=== PATIENT | male | born 1940 | race Caucasian/White ===

== ENCOUNTER 2020-12-12 15:37 | Inpatient (IN) ==
[2020-12-12] MEDS ORDERED: Dextrose Gel 15 GM/37.5 ML TUBE PO PRN ×2 (18:28)
[2020-12-12] MEDS ORDERED: Ondansetron ODT 4 MG TAB.RAPDIS SL PRN (18:28)
[2020-12-12] MEDS ORDERED: Acetaminophen 325 MG TABLET PO PRN (18:28)
[2020-12-12] MEDS ORDERED: D5% in Water 1,000 ML IVC PRN (18:28)
[2020-12-12] MEDS ORDERED: Naloxone 0.4 MG/ML INJ IVP PRN (18:28)
[2020-12-12] MEDS: *HR* Dextrose 50 % in Water (Vial) 50 ML VIAL IVP PRN (18:41)
[2020-12-12] MEDS ORDERED: Ondansetron 4 MG/2 ML VIAL IVP PRN (18:42)
[2020-12-12 20:58] LABS: Basophils % 0.2 %; Eosinophils # 0.1 K/mcL (0.0-0.6); Hematocrit 23.8 % (37.5-50.1); Hemoglobin 7.2 g/dL (12.9-16.9); Immature Granulocytes % 0.5 % (0-4); Lymphocytes # 0.5 K/mcL (0.6-4.6); Lymphocytes % 9.1 %; Mean Corpuscular HGB Conc 30.3 g/dL (31.6-35.5); Mean Corpuscular Hemoglobin 27.4 pg (28.0-33.3); Mean Corpuscular Volume 90.5 fL (83.0-100.0); Mean Platelet Volume 10.5 fL (9.4-12.4); Monocytes # 0.7 K/mcL (0.0-1.3); Monocytes % 12.5 %; Neutrophils # 4.2 K/mcL (1.6-8.9); Platelet Count 193 K/mcL (140-400); Red Blood Count 2.63 M/mcL (4.19-5.50); Red Cell Distribution Width 17.3 % (11.5-14.5); Segmented Neutrophils % 75.7 %; White Blood Count 5.6 K/mcL (4.3-11.1)
[2020-12-12 21:22] LABS: Chol/HDL Ratio 2.4 (0-4.9)
[2020-12-12 21:23] LABS: Troponin I 0.03 ng/mL (< 0.04)
[2020-12-12 21:24] LABS: Albumin 3.7 g/dL (3.5-5.7); Albumin/Globulin Ratio 1.6 (1.1-2.2); Bilirubin,Total 0.5 mg/dL (0.3-1.0); Calcium 8.5 mg/dL (8.6-10.3); Globulin 2.3 g/dL (2.4-3.5); Magnesium 1.9 mg/dL (1.6-2.6); Potassium 4.7 mEq/L (3.5-5.1)
[2020-12-12 21:46] LABS: Folate 14.2 ng/mL (3.0-16.0)
[2020-12-12] MEDS ORDERED: *HR* LORazepam 0.5 MG TABLET PO PRN (22:29)
[2020-12-12] MEDS ORDERED: (Linaclotide [Linzess] 145 MCG Capsule) PO PRN (22:44)
[2020-12-12] MEDS ORDERED: Perflutren Lipid Microsphere 1.3 ML in 0.9 % Sodium Chloride 8.7 ML IVP PRN (22:54)
[2020-12-13] MEDS ORDERED: *HR* HYDROcodone/Acet 7.5/325 mg TABLET PO ONE (02:00)
[2020-12-13] MEDS: *HR* Dextrose 50 % in Water (Vial) 50 ML VIAL IVP PRN ×2 (03:20→04:38)
[2020-12-13] MEDS ORDERED: *HR* HYDROmorphone 2 MG TABLET PO ONE (05:06)
[2020-12-13] MEDS ORDERED: tiZANidine 4 MG TABLET PO ONE (05:06)
[2020-12-13] MEDS ORDERED: *HR* Heparin 5,000 UNIT/ML VIAL SQ SCH (06:00)
[2020-12-13 07:28] LABS: Platelet Count 198 K/mcL (140-400); Red Cell Distribution Width 17.3 % (11.5-14.5)
[2020-12-13 07:30] LABS: Hematocrit 24.2 % (37.5-50.1); Hemoglobin 7.4 g/dL (12.9-16.9); Mean Corpuscular HGB Conc 30.6 g/dL (31.6-35.5); Mean Corpuscular Hemoglobin 27.5 pg (28.0-33.3); Mean Platelet Volume 10.5 fL (9.4-12.4); Red Blood Count 2.69 M/mcL (4.19-5.50); White Blood Count 5.2 K/mcL (4.3-11.1)
[2020-12-13 07:49] LABS: Calcium 8.6 mg/dL (8.6-10.3); Potassium 4.7 mEq/L (3.5-5.1)
[2020-12-13] MEDS: Fenofibrate 54 MG TABLET PO SCH (07:56)
[2020-12-13] MEDS: Sucralfate 1 GM TABLET PO SCH ×3 (07:56→20:24)
[2020-12-13] MEDS: Ranolazine 500 MG TAB.ER.12H PO SCH ×2 (07:56→20:24)
[2020-12-13] MEDS: Loratadine/Pseudophed (12 HR) 1 EACH TABLET PO SCH (07:57)
[2020-12-13] MEDS ORDERED: NON-FORMULARY MEDICATION 1 EACH EACH (Lisinopril [Zestril] 40 MG Tablet) PO SCH (09:00)
[2020-12-13] MEDS: Insulin LISPRO 300 UNITS/3 ML VIAL SUBQ SCH ×3 (12:45→20:22)
[2020-12-13] MEDS: *HR* HYDROcodone/Acet 7.5/325 mg TABLET PO PRN ×2 (12:57→20:27)
[2020-12-13] MEDS: Ondansetron 4 MG/2 ML VIAL IVP PRN ×2 (14:38→22:26)
[2020-12-13] MEDS ORDERED: Levalbuterol 1 PUFF INHALER IH PRN (23:10)
[2020-12-13] MEDS: Ipratropium/Albuterol Neb 3 ML IH PRN (23:23)
[2020-12-14] MEDS: Ipratropium/Albuterol Neb 3 ML IH PRN ×2 (03:38→10:40)
[2020-12-14 05:37] LABS: Hemoglobin 7.6 g/dL (12.9-16.9); Mean Corpuscular HGB Conc 30.4 g/dL (31.6-35.5); Mean Corpuscular Hemoglobin 27.3 pg (28.0-33.3); Mean Corpuscular Volume 89.9 fL (83.0-100.0); Platelet Count 241 K/mcL (140-400); Red Blood Count 2.78 M/mcL (4.19-5.50); Red Cell Distribution Width 17.2 % (11.5-14.5); White Blood Count 6.2 K/mcL (4.3-11.1)
[2020-12-14 05:54] LABS: Calcium 8.8 mg/dL (8.6-10.3); Potassium 5.9 mEq/L (3.5-5.1)
[2020-12-14] MEDS ORDERED: *HR* Dextrose 50 % in Water (Vial) 50 ML VIAL IVP ONE (07:45)
[2020-12-14] MEDS ORDERED: Albuterol Neb 7.5 MG, Sodium Chloride for inhalation 12 ML IH ONE (07:45)
[2020-12-14] MEDS ORDERED: Insulin Human Regular 10 UNIT in 0.9 % Sodium Chloride 10 ML IV ONE (07:45)
[2020-12-14] MEDS: Sucralfate 1 GM TABLET PO SCH ×3 (08:16→17:42)
[2020-12-14] MEDS: Loratadine/Pseudophed (12 HR) 1 EACH TABLET PO SCH (08:16)
[2020-12-14] MEDS: Ranolazine 500 MG TAB.ER.12H PO SCH (08:16)
[2020-12-14] MEDS: Fenofibrate 54 MG TABLET PO SCH (08:17)
[2020-12-14] MEDS: Insulin LISPRO 300 UNITS/3 ML VIAL SUBQ SCH ×4 (08:25→21:53)
[2020-12-14] MEDS: Ondansetron 4 MG/2 ML VIAL IVP PRN (09:04)
[2020-12-14] MEDS: *HR* HYDROcodone/Acet 7.5/325 mg TABLET PO PRN (09:57)
[2020-12-14] MEDS ORDERED: Ferumoxytol 510 MG in 0.9 % Sodium Chloride 100 ML IVPB ONE (11:38)
[2020-12-14] MEDS: Aspirin Enteric Coated 81 MG Tablet PO SCH (11:54)
[2020-12-14] MEDS: Ipratropium/Albuterol Neb 3 ML IH SCH ×4 (12:35→23:57)
[2020-12-14] MEDS ORDERED: 0.9 % Sodium Chloride 250 ML IVC PRN (14:26)
[2020-12-14] MEDS ORDERED: *HR* Heparin 10,000 UNIT/10 ML VIAL IV PRN (14:26)
[2020-12-14] MEDS ORDERED: 0.9 % Sodium Chloride 1,000 ML ONE (14:29)
[2020-12-14] MEDS ORDERED: 0.9 % Sodium Chloride 1,000 ML PRIME SCH (14:30)
[2020-12-14 16:14] LABS: Hepatitis B Surface Antibody < 3.10 mIU/mL
[2020-12-14 17:45] LABS: Hepatitis B Surface Antigen Nonreactive (Nonreactive)
[2020-12-14] MEDS: *HR* HYDROcodone/Acet 10/325 mg TABLET PO PRN (19:28)
[2020-12-14] MEDS: hydrOXYzine pamoate 25 MG CAPSULE PO SCH (20:57)
[2020-12-14] MEDS ORDERED: Gabapentin 300 MG CAPSULE PO SCH (21:00)
[2020-12-15 01:05] LABS: ABG Base Excess 7 mEq/L (-2 to 3); ABG HCO3 33 mEq/L (21-27); ABG Oxygen Saturation 97 % (95-98); ABG PCO2 52 mmHg (35-45); ABG PO2 89 mmHg (85-104); ABG TCO2 34 mEq/L (20-26); Blood Gas Modality 6LPM
[2020-12-15 01:25] LABS: Basophils % 0.5 %; Eosinophils % 0.3 %; Hemoglobin 7.4 g/dL (12.9-16.9); Immature Granulocytes % 1.5 % (0-4); Lymphocytes # 0.4 K/mcL (0.6-4.6); Lymphocytes % 6.7 %; Mean Corpuscular HGB Conc 29.6 g/dL (31.6-35.5); Mean Corpuscular Hemoglobin 26.3 pg (28.0-33.3); Mean Platelet Volume 10.4 fL (9.4-12.4); Monocytes # 0.7 K/mcL (0.0-1.3); Neutrophils # 4.9 K/mcL (1.6-8.9); Platelet Count 241 K/mcL (140-400); Red Blood Count 2.81 M/mcL (4.19-5.50); Red Cell Distribution Width 16.9 % (11.5-14.5); White Blood Count 6.2 K/mcL (4.3-11.1)
[2020-12-15 01:44] LABS: Calcium 8.5 mg/dL (8.6-10.3); Phosphorous 2.9 mg/dL (2.7-4.5); Potassium 4.6 mEq/L (3.5-5.1)
[2020-12-15] MEDS: Ipratropium/Albuterol Neb 3 ML IH SCH ×6 (04:25→23:53)
[2020-12-15] MEDS: Insulin LISPRO 300 UNITS/3 ML VIAL SUBQ SCH ×4 (07:41→20:34)
[2020-12-15] MEDS: Aspirin Enteric Coated 81 MG Tablet PO SCH (07:42)
[2020-12-15] MEDS: Sucralfate 1 GM TABLET PO SCH ×3 (07:42→16:45)
[2020-12-15] MEDS: Ondansetron 4 MG/2 ML VIAL IVP PRN (07:46)
[2020-12-15] MEDS: *HR* HYDROcodone/Acet 10/325 mg TABLET PO PRN ×2 (07:46→14:11)
[2020-12-15 12:36] LABS: Estimated Average Glucose 148 mg/dl; Hemoglobin A1C 6.8 %
[2020-12-15] MEDS: *HR* Heparin 5,000 UNIT/ML VIAL SQ SCH ×2 (14:11→20:29)
[2020-12-15] MEDS: hydrOXYzine pamoate 25 MG CAPSULE PO SCH (20:27)
[2020-12-15] MEDS: Gabapentin 100 MG CAPSULE PO SCH (20:27)
[2020-12-16 02:02] LABS: Basophils % 0.3 %; Eosinophils # 0.1 K/mcL (0.0-0.6); Eosinophils % 0.9 %; Hematocrit 25.3 % (37.5-50.1); Hemoglobin 7.5 g/dL (12.9-16.9); Immature Granulocytes % 2.1 % (0-4); Lymphocytes # 0.8 K/mcL (0.6-4.6); Lymphocytes % 14.3 %; Mean Corpuscular HGB Conc 29.6 g/dL (31.6-35.5); Mean Corpuscular Hemoglobin 26.6 pg (28.0-33.3); Mean Corpuscular Volume 89.7 fL (83.0-100.0); Mean Platelet Volume 10.4 fL (9.4-12.4); Monocytes # 0.8 K/mcL (0.0-1.3); Monocytes % 14.5 %; Neutrophils # 3.9 K/mcL (1.6-8.9); Nucleated Red Blood Cells 0.3 /100 WBC (0); Platelet Count 279 K/mcL (140-400); Red Blood Count 2.82 M/mcL (4.19-5.50); Red Cell Distribution Width 17.5 % (11.5-14.5); Segmented Neutrophils % 67.9 %; White Blood Count 5.8 K/mcL (4.3-11.1)
[2020-12-16 02:18] LABS: Calcium 8.9 mg/dL (8.6-10.3); Phosphorous 2.8 mg/dL (2.7-4.5); Potassium 5.3 mEq/L (3.5-5.1)
[2020-12-16] MEDS: Ipratropium/Albuterol Neb 3 ML IH SCH ×5 (04:03→20:04)
[2020-12-16] MEDS: *HR* Heparin 5,000 UNIT/ML VIAL SQ SCH ×3 (05:34→22:07)
[2020-12-16] MEDS ORDERED: 0.9 % Sodium Chloride 250 ML IVC PRN (07:52)
[2020-12-16] MEDS ORDERED: *HR* Heparin 10,000 UNIT/10 ML VIAL IV PRN ×2 (07:52)
[2020-12-16] MEDS: Aspirin Enteric Coated 81 MG Tablet PO SCH (09:32)
[2020-12-16] MEDS: Ondansetron 4 MG/2 ML VIAL IVP PRN ×3 (09:32→22:00)
[2020-12-16] MEDS: *HR* HYDROcodone/Acet 10/325 mg TABLET PO PRN ×2 (09:33→15:29)
[2020-12-16] MEDS: Sucralfate 1 GM TABLET PO SCH ×3 (09:33→16:55)
[2020-12-16] MEDS: Insulin LISPRO 300 UNITS/3 ML VIAL SUBQ SCH ×4 (09:40→22:00)
[2020-12-16] MEDS ORDERED: Darbepoetin 100 MCG/0.5 ML SYRINGE SQ SCH (12:00)
[2020-12-16] MEDS: Gabapentin 100 MG CAPSULE PO SCH (21:52)
[2020-12-16] MEDS: hydrOXYzine pamoate 25 MG CAPSULE PO SCH (21:53)
[2020-12-17] MEDS: Ipratropium/Albuterol Neb 3 ML IH SCH ×7 (00:06→23:37)
[2020-12-17] MEDS: *HR* HYDROcodone/Acet 10/325 mg TABLET PO PRN ×3 (00:10→17:35)
[2020-12-17] MEDS ORDERED: Ferumoxytol 510 MG in 0.9 % Sodium Chloride 100 ML IVPB ONE (00:20)
[2020-12-17 03:58] LABS: Basophils % 0.8 %; Eosinophils # 0.1 K/mcL (0.0-0.6); Eosinophils % 1.1 %; Hematocrit 24.7 % (37.5-50.1); Hemoglobin 7.3 g/dL (12.9-16.9); Immature Granulocytes % 2.3 % (0-4); Lymphocytes # 0.7 K/mcL (0.6-4.6); Lymphocytes % 12.8 %; Mean Corpuscular HGB Conc 29.6 g/dL (31.6-35.5); Mean Corpuscular Hemoglobin 26.7 pg (28.0-33.3); Mean Corpuscular Volume 90.5 fL (83.0-100.0); Monocytes # 0.8 K/mcL (0.0-1.3); Monocytes % 14.8 %; Neutrophils # 3.6 K/mcL (1.6-8.9); Nucleated Red Blood Cells 0.6 /100 WBC (0); Platelet Count 302 K/mcL (140-400); Red Blood Count 2.73 M/mcL (4.19-5.50); Red Cell Distribution Width 18.1 % (11.5-14.5); Segmented Neutrophils % 68.2 %; White Blood Count 5.3 K/mcL (4.3-11.1)
[2020-12-17 04:18] LABS: Calcium 8.7 mg/dL (8.6-10.3); Phosphorous 2.2 mg/dL (2.7-4.5); Potassium 4.2 mEq/L (3.5-5.1)
[2020-12-17] MEDS: *HR* Heparin 5,000 UNIT/ML VIAL SQ SCH ×2 (05:49→17:36)
[2020-12-17] MEDS: Sucralfate 1 GM TABLET PO SCH ×3 (08:13→17:35)
[2020-12-17] MEDS: Finasteride 5 MG TABLET PO SCH (08:13)
[2020-12-17] MEDS: Aspirin Enteric Coated 81 MG Tablet PO SCH (08:13)
[2020-12-17] MEDS: Insulin LISPRO 300 UNITS/3 ML VIAL SUBQ SCH ×4 (08:14→21:03)
[2020-12-17] MEDS ORDERED: NEBIVOLOL HCL 20 MG PO SCH (09:00)
[2020-12-17] MEDS: Ondansetron 4 MG/2 ML VIAL IVP PRN ×2 (15:01→21:06)
[2020-12-17] MEDS: hydrOXYzine pamoate 25 MG CAPSULE PO SCH (21:02)
[2020-12-17] MEDS: Gabapentin 100 MG CAPSULE PO SCH (21:03)
[2020-12-18] MEDS: Ipratropium/Albuterol Neb 3 ML IH SCH ×4 (03:34→15:56)
[2020-12-18] MEDS: *HR* Heparin 5,000 UNIT/ML VIAL SQ SCH ×2 (04:52→16:37)
[2020-12-18 05:02] LABS: Hemoglobin 8.1 g/dL (12.9-16.9)
[2020-12-18 05:18] LABS: Calcium 8.7 mg/dL (8.6-10.3); Phosphorous 2.8 mg/dL (2.7-4.5); Potassium 4.6 mEq/L (3.5-5.1)
[2020-12-18] MEDS ORDERED: 0.9 % Sodium Chloride 250 ML IVC PRN (07:25)
[2020-12-18] MEDS ORDERED: *HR* Heparin 10,000 UNIT/10 ML VIAL IV PRN ×2 (07:25)
[2020-12-18] MEDS ORDERED: 0.9 % Sodium Chloride 1,000 ML PRIME SCH (07:30)
[2020-12-18] MEDS: Aspirin Enteric Coated 81 MG Tablet PO SCH (08:08)
[2020-12-18] MEDS: Insulin LISPRO 300 UNITS/3 ML VIAL SUBQ SCH ×3 (08:08→17:21)
[2020-12-18] MEDS: Sucralfate 1 GM TABLET PO SCH ×3 (08:08→16:37)
[2020-12-18] MEDS: Finasteride 5 MG TABLET PO SCH (08:08)
[2020-12-18] MEDS: *HR* HYDROcodone/Acet 10/325 mg TABLET PO PRN (13:38)
[2020-12-18] MEDS: Ondansetron 4 MG/2 ML VIAL IVP PRN (13:41)
[2020-12-18 16:09] VITALS: BP 169/77; PULSE 85; TEMP 98.8; O2SAT 96
[2020-12-18 17:40] LABS: Adenovirus Not Detected (Not Detect); Coronavirus 229E Not Detected (Not Detect); Coronavirus HKU1 Not Detected (Not Detect); Coronavirus NL63 Not Detected (Not Detect); Coronavirus OC43 Not Detected (Not Detect); Human Metapneumovirus Not Detected (Not Detect); SARS-CoV-2 Not Detected (Not Detect)
[2020-12-18 17:41] LABS: Bordetella Pertussis Not Detected (Not Detect); Chlamydophila pneumoniae Not Detected (Not Detect); Human Rhinovirus/Enterovirus Not Detected (Not Detect); Influenza A Subtype 2009 H1 Not Detected (Not Detect); Influenza B Not Detected (Not Detect); Mycoplasma pneumoniae Not Detected (Not Detect); Parainfluenza Virus 1 Not Detected (Not Detect); Parainfluenza Virus 2 Not Detected (Not Detect); Parainfluenza Virus 3 Not Detected (Not Detect); Parainfluenza Virus 4 Not Detected (Not Detect); Respiratory Syncytial Virus Not Detected (Not Detect)
== END 2020-12-18 18:45 | disposition other institution (70) | DRG 637 ==
LOC: 2ANU → SUATTDRO 12-14 10:33
PROVIDERS: ADMIT Internal Medicine; ATTEND Internal Medicine

== ENCOUNTER 2020-12-31 16:20 | Observation (INO) ==
[2020-12-31] MEDS ORDERED: Naloxone 0.4 MG/ML INJ IVP PRN (19:36)
[2020-12-31] MEDS ORDERED: Ondansetron 4 MG/2 ML VIAL IVP PRN (19:36)
[2020-12-31] MEDS ORDERED: Melatonin 3 MG TABLET PO PRN (19:36)
[2020-12-31] MEDS ORDERED: Acetaminophen 325 MG TABLET PO PRN (19:36)
[2020-12-31] MEDS ORDERED: Albuterol 2.5 MG/3 ML NEBULIZER IH PRN (19:41)
[2020-12-31] MEDS ORDERED: *HR* LORazepam 1 MG TABLET PO PRN (19:41)
[2020-12-31] MEDS ORDERED: *HR* LORazepam 2 MG/ML VIAL IVP ONE (21:52)
[2020-12-31] MEDS ORDERED: Levalbuterol 1 PUFF INHALER IH PRN (22:00)
[2020-12-31] MEDS ORDERED: Dextrose Gel 15 GM/37.5 ML TUBE PO PRN ×2 (22:33)
[2020-12-31] MEDS ORDERED: D5% in Water 1,000 ML IVC PRN (22:33)
[2020-12-31] MEDS: Insulin DETEMIR 100 UNIT/ML X5UNITS SUBQ SCH (22:45)
[2020-12-31] MEDS: QUEtiapine Fumarate 25 MG TABLET PO SCH (22:52)
[2020-12-31] MEDS: hydrOXYzine pamoate 25 MG CAPSULE PO SCH (22:52)
[2020-12-31] MEDS: Sucralfate 1 GM TABLET PO SCH (22:52)
[2020-12-31] MEDS: Furosemide 40 MG TABLET PO SCH (22:52)
[2020-12-31] MEDS: *HR* HYDROcodone/Acet 5/325 mg TABLET PO PRN (23:48)
[2020-12-31] MEDS: hydrALAZINE 25 MG TABLET PO SCH (23:48)
[2021-01-01 06:57] LABS: Eosinophils % 0.4 %
[2021-01-01 06:58] LABS: Basophils % 0.6 %; Hematocrit 34.9 % (37.5-50.1); Hemoglobin 10.2 g/dL (12.9-16.9); Immature Granulocytes % 1.3 % (0-4); Lymphocytes # 0.8 K/mcL (0.6-4.6); Lymphocytes % 12.2 %; Mean Corpuscular HGB Conc 29.2 g/dL (31.6-35.5); Mean Corpuscular Hemoglobin 28.1 pg (28.0-33.3); Mean Corpuscular Volume 96.1 fL (83.0-100.0); Mean Platelet Volume 9.3 fL (9.4-12.4); Monocytes # 0.9 K/mcL (0.0-1.3); Neutrophils # 4.9 K/mcL (1.6-8.9); Nucleated Red Blood Cells 0.6 /100 WBC (0); Platelet Count 230 K/mcL (140-400); Red Blood Count 3.63 M/mcL (4.19-5.50); Red Cell Distribution Width 19.8 % (11.5-14.5); Segmented Neutrophils % 72.5 %; White Blood Count 6.7 K/mcL (4.3-11.1)
[2021-01-01 07:09] LABS: INR 1.3; Prothrombin Time 14.7 Seconds (9.4-12.1)
[2021-01-01 07:11] LABS: VBG HCO3 35 mEq/L (21-27); VBG PCO2 80 mmHg (41-51); VBG PH 7.25 pH Units (7.32-7.42); VBG PO2 37 mmHg (25-50)
[2021-01-01 07:17] LABS: Calcium 8.9 mg/dL (8.6-10.3); Magnesium 2.5 mg/dL (1.6-2.6); Phosphorous 3.4 mg/dL (2.7-4.5); Potassium 3.8 mEq/L (3.5-5.1)
[2021-01-01] MEDS: *HR* Dextrose 50 % in Water (Vial) 50 ML VIAL IVP PRN ×3 (07:40→17:39)
[2021-01-01] MEDS: Insulin LISPRO 300 UNITS/3 ML VIAL SUBQ SCH ×3 (07:40→17:55)
[2021-01-01 07:41] LABS: Folate 9.9 ng/mL (3.0-16.0)
[2021-01-01] MEDS: Furosemide 40 MG TABLET PO SCH (08:45)
[2021-01-01] MEDS: hydrALAZINE 25 MG TABLET PO SCH (08:45)
[2021-01-01] MEDS: Metoprolol 100 MG TABLET PO SCH ×2 (08:46→20:43)
[2021-01-01] MEDS: Isosorbide MONOnitrate (24 HR) 60 MG TAB.ER.24H PO SCH (08:46)
[2021-01-01] MEDS: Sucralfate 1 GM TABLET PO SCH ×2 (08:46→20:42)
[2021-01-01] MEDS: Loratadine/Pseudophed (12 HR) 1 EACH TABLET PO SCH (08:46)
[2021-01-01] MEDS: EPLERENONE 25 MG PO SCH (08:47)
[2021-01-01] MEDS ORDERED: Gabapentin 300 MG CAPSULE PO SCH (09:00)
[2021-01-01] MEDS ORDERED: Finasteride 5 MG TABLET PO SCH (09:00)
[2021-01-01] MEDS ORDERED: Fenofibrate 54 MG TABLET PO SCH (09:00)
[2021-01-01] MEDS ORDERED: Aspirin Enteric Coated 81 MG Tablet PO SCH (09:00)
[2021-01-01] MEDS ORDERED: 0.9 % Sodium Chloride 250 ML IVC PRN (11:21)
[2021-01-01 11:26] LABS: ABG Base Excess 5 mEq/L (-2 to 3); ABG HCO3 32 mEq/L (21-27); ABG Oxygen Saturation 98 % (95-98); ABG PCO2 60 mmHg (35-45); ABG PH 7.34 pH Units (7.32-7.45); ABG PO2 111 mmHg (85-104); ABG TCO2 34 mEq/L (20-26)
[2021-01-01] MEDS ORDERED: 0.9 % Sodium Chloride 1,000 ML PRIME SCH (11:30)
[2021-01-01] MEDS: UMECLIDINIUM BRM IH SCH (11:37)
[2021-01-01] MEDS: VILANTEROL TR IH SCH (11:37)
[2021-01-01] MEDS: *HR* HYDROcodone/Acet 5/325 mg TABLET PO PRN (15:59)
[2021-01-01] MEDS: *HR* Heparin 5,000 UNIT/ML VIAL SQ SCH (17:53)
[2021-01-01] MEDS ORDERED: *HR* LORazepam Oral Conc 2 MG/ML SL PRN ×2 (18:13→21:43)
[2021-01-01] MEDS ORDERED: Haloperidol Oral Conc 10 MG/5 ML UDC PO PRN (19:16)
[2021-01-01] MEDS ORDERED: *HR* FentaNYL (PF) 100 MCG/2 ML VIAL IVP PRN (19:18)
[2021-01-01] MEDS: hydrOXYzine pamoate 25 MG CAPSULE PO SCH (20:43)
[2021-01-01] MEDS: QUEtiapine Fumarate 25 MG TABLET PO SCH (20:43)
[2021-01-01] MEDS: Insulin DETEMIR 100 UNIT/ML X5UNITS SUBQ SCH (20:44)
[2021-01-01] MEDS ORDERED: Insulin LISPRO 300 UNITS/3 ML VIAL SUBQ SCH (21:00)
[2021-01-01] MEDS: *HR* Promethazine 25 MG/ML VIAL IM PRN (21:19)
[2021-01-01] MEDS: *HR* FentaNYL (PF) 100 MCG/2 ML VIAL IVP PRN (21:51)
[2021-01-01] MEDS ORDERED: *HR* HYDROmorphone (PF) 1 MG/ML SYRINGE IVP ONE (22:55)
[2021-01-02] MEDS: *HR* FentaNYL (PF) 100 MCG/2 ML VIAL IVP PRN ×3 (01:16→07:52)
[2021-01-02] MEDS ORDERED: Haloperidol Lactate 5 MG/ML VIAL IVP PRN (02:51)
[2021-01-02] MEDS: haloperidoL 1 MG TABLET PO SCH ×3 (03:08→12:16)
[2021-01-02] MEDS: *HR* Heparin 5,000 UNIT/ML VIAL SQ SCH (05:41)
[2021-01-02] MEDS ORDERED: *HR* HYDROmorphone (PF) 1 MG/ML SYRINGE IVP ONE (06:41)
[2021-01-02 07:43] VITALS: BP 160/72; PULSE 77; TEMP 97.5; O2SAT 86
[2021-01-02] MEDS: *HR* Promethazine 25 MG/ML VIAL IM PRN (07:56)
[2021-01-02] MEDS: Insulin LISPRO 300 UNITS/3 ML VIAL SUBQ SCH (08:00)
[2021-01-02] MEDS ORDERED: Gabapentin 300 MG CAPSULE PO SCH (09:00)
[2021-01-02] MEDS: UMECLIDINIUM BRM IH SCH (09:00)
[2021-01-02] MEDS: Metoprolol 100 MG TABLET PO SCH (09:00)
[2021-01-02] MEDS: EPLERENONE 25 MG PO SCH (09:00)
[2021-01-02] MEDS: Loratadine/Pseudophed (12 HR) 1 EACH TABLET PO SCH (09:00)
[2021-01-02] MEDS: VILANTEROL TR IH SCH (09:00)
[2021-01-02] MEDS: Isosorbide MONOnitrate (24 HR) 60 MG TAB.ER.24H PO SCH (09:00)
== END 2021-01-02 14:24 | disposition expired ==
LOC: CDU → SUATTDRO 19:36 → 2ANU 01-01 23:48
PROVIDERS: ADMIT Internal Medicine; ATTEND Internal Medicine